=== PATIENT | female | born 1985 | race Caucasian/White ===

== ENCOUNTER 2016-07-16 15:25 | Emergency (ER) | payer OTHER ==
[~2016-07-16] VITALS: Ht 170.2 cm; Wt 136.0 kg
[2016-07-16 16:51] LABS: HEMATOCRIT 40.6 % (36.0-46.0); MCH 31.1 PG (29.0-34.0); MCV 91.4 FL (83-99); MEAN PLAT.VOLUME 10.4 uM^3 (9.5-12.4); PLATELET COUNT 298 K/uL (156-360); RBC DIS.WIDTH-CV 12.6 % (11.8-14.6); RBC DIS.WIDTH-SD 41.3 % (39-53); RED BLOOD COUNT 4.44 M/uL (3.80-5.20); WHITE BLOOD COUNT 7.6 K/uL (4.1-10.2)
[2016-07-16 17:02] LABS: CHLORIDE 107 mEq/L (99-109); POTASSIUM 4.2 mEq/L (3.7-5.4); SODIUM 141 mEq/L (136-147)
[2016-07-16 17:03] LABS: GLUCOSE 92 mg/dL (70-99)
[2016-07-16 17:05] LABS: ANION GAP 9 MEQ/L (2-14)
[2016-07-16 17:07] LABS: GFR ESTIMATE (CALCULATED) > 59 mL/min/
[2016-07-16 17:08] LABS: UREA NITROGEN (BUN) 13 mg/dL (9-23)
[2016-07-16] MEDS ORDERED: ZITHROMAX Z-PA250 MG PO (19:34)
[2016-07-16] MEDS ORDERED: VENTOLIN HFA18 GM IH (19:34)
[2016-07-16] MEDS ORDERED: ROBITUSSIN AC,T10 ML PO (19:34)
[2016-07-16 19:59] VITALS: BP 136/95
== END 2016-07-16 20:01 | disposition home or self-care (01) ==
LOC: EME 15:25
DX: J20.9 Acute bronchitis, unspecified (principal)
CPT/HCPCS: 71020; 80048; 85027; 94640; 99281; 99283